=== PATIENT | female | born 1970 | race African-American/Black ===

== ENCOUNTER 2017-01-17 19:27 | Emergency (ER) | payer OTHER ==
[~2017-01-17] VITALS: Ht 165.1 cm; Wt 79.4 kg
--- NOTE | 2017-01-17 20:37 | ED NECK/BACK PAIN COMPLAINT ---
History of Present Illness General Chief Complaint: Lower Extremity Problems Stated Complaint: PT IS HAVING BACK PAIN Source: patient Exam Limitations: no limitations Vital Signs & Intake/Output Vital Signs & Intake/Output Vital Signs Date Time Temp Pulse Resp B/P B/P Pulse O2 O2 Flow FiO2 Mean Ox Delivery Rate 01/17 2149 98.9 84 20 145/69 100 Room Air 01/17 1938 97.8 60 18 176/104 100 Room Air Allergies Coded Allergies: No Known Allergies (01/17/17) Reconcile Medications Loratadine (Claritin) 10 MG TABLET 1 TAB PO DAILY ALLERGIES (Reported) Methocarbamol (Robaxin) 500 MG TABLET 1 TAB PO TID PRN MUSCLE STRAIN Naproxen (Naprosyn) 500 MG TABLET 1 TAB PO BID PRN PAIN Triage Note: PRESENTS TO ED FOR EVALUATION OF LOWER BACK PAIN. REPORTS SHE TOOK A NAP ON HE COUCH YESTERDAY AND UPON WAKING UP SHE EXPERIENCED SOME DISCOMFORT HOWEVER IT HAS BEEN WORSENING SINCE. Triage Nurses Notes Reviewed? yes Onset: Gradual Duration: day(s): (2) Timing: no prior history Quality/Severity: moderate Location: lumbar spine, paraspinous muscles Radiation: none Method of Injury: unknown Loss of Consciousness: no loss of consciousness Modifying Factors: movement HPI: Patient is a 46-year-old female presenting to the emergency department with chief complaint left lower back pain has been going on since yesterday. She reports that she took a nap on the couch and woke up with soreness to her left low back. Pain is achy, worse with movement. No history of back issues in the past. Denies any specific injury or heavy lifting. 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 Denies any nausea vomiting fevers or chills chest pain or shortness of breath. No abdominal pain. She does report urinary frequency but denies dysuria or hematuria. No history kidney stones. She took some Advil with some relief. Denies any urinary incontinence or retention. No lower extremity weakness. Past History Travel History Traveled to [place] past 21 day No Medical History Any Pertinent Medical History? see below for history Surgical History Surgical History: non-contributory Psychosocial History What is your primary language Dive[place] Tobacco Use: Quit >30 days ago Family History Hx Contributory? No Review of Systems Review of Systems Constitutional: Reports: no symptoms. Comments Review of systems: See HPI, All other systems negative. Constitutional, no chills fever or weight loss HEENT: No visual changes no sore throat no congestion Cardiovascular: No chest pain ,palpitation Skin, no jaundice no rashes Respiratory: No dyspnea cough sputum or hemoptysis GI: No nausea no vomiting : No dysuria No hematuria Muscle skeletal: no neck pain, Neurologic: No numbness no confusion Psych: No stress anxiety or depression,. Heme/endocrine: No bruising no bleeding no polyuria or polydipsia Immunology: No splenectomy or history of AIDS Physical Exam Physical Exam General Appearance: well developed/nourished, no apparent distress, alert, awake , comfortable Neck: normal inspection, supple, full range of motion, normal alignment Comments: Well-developed well-nourished person in no acute distress HEENT: Pupils equally round and reactive to light and accommodation. Nose is atraumatic. Neck: Supple, no lymphadenopathy, normal range of motion without pain or tenderness, no C-spine BACK:mild tenderness to palpation over the lumbar paraspinal muscles on the left. Tender to palpation over the left sacroiliac joint. Negative modified straight leg raise bilaterally. Limited range of motion with/secondary to pain. Patient able to bring hands down to mid thigh before pain. Cardiovascular: Regular rate and rhythms no murmurs rubs or gallops, normal JVP Respiratory: Chest nontender. No respiratory distress.breath sounds clear to auscultation bilaterally Abdomen: Soft, nontender nondistended, no appreciable organomegaly. Normal bowel sounds. No ascites Extremity: No edema, full range of motion of upper extremities without difficulty or pain. Muscular strength is 5 out of 5 in all extremities while seated. Neuro: Alert oriented x3, motor sensory normal, patellar reflexes are 2+ bilaterally. Skin: No appreciable rash on exposed skin, skin is warm and dry. Psych: Mood and affect is normal, memory and judgment is normal. Progress Differential Diagnosis: cauda equina syn, herniated disc, myofascial strain, pyelo/UTI, sciatica, T/L spine injury Plan of Care: Orders Procedure Date/time Status Add-on Test (ER Only) 01/17 2146 Active CULTURE,URINE 01/17 2041 Active URINE 01/17 2035 Complete URINALYSIS 01/17 2035 Complete Current Medications Sig/Jesu Start time Last Medication Dose Stop Time Status Admin Ketorolac 30 MG ONE ONE 01/17 2200 UNVr Tromethamine 01/17 2201 (Toradol) Laboratory Tests 01/17/172040: Urinalysis LIGHT H, Urine Color YEL, Urine Clarity CLEAR, Urine pH 6.0, Ur Specific [place] 1.025, Urine Protein TRACE H, Urine Ketones NEG, Urine Nitrite NEG, Urine Bilirubin NEG, Urine Urobilinogen 0.2, Ur Leukocyte Esterase SMALL H , Ur Microscopic SEDIMENT EXAMINED, Urine RBC 1-3, Urine WBC 3-5 H, Ur Epithelial Cells MOD H, Urine Bacteria FEW H, Urine Hemoglobin NEG, Urine Glucose NEG, Urine Test NEGATIVE Microbiology 01/17 2041 URINE ROUT: Urine Culture - RECD Comments: 01/17/2017 9:00:47 PM no bony tenderness on exam. Patient has reproducible pain over the musculature and SI joint of the left low back. She also is reporting frequency. We will assess urinalysis to makes her no signs of UTI. Declining pain medication at this time. 01/17/2017 9:52:51 PM patient informed of the urinalysis results. Not a great sample with moderate epithelial cells. Sent off a culture. Patient will be symptomatically for back strain at this time. We will call if the culture comes back positive and started her on antibiotics at that time. Patient will return for any worsening symptoms or concerns. Departure Departure Time of Disposition: 2149 Disposition: HOME OR SELF CARE Condition: Stable Clinical Impression Primary Impression: Muscle strain Referrals: PATIENT HAS NO PRIMARY CARE DR (PCP/Family) Additional Instructions: Follow-up with your primary care physician CALL TO make appointment. We will call you if you or urine culture grows anything out. Take naproxen and Robaxin as prescribed. Apply warm compresses. Return for worsening symptoms or concerns. Departure Forms: Customer Survey General Discharge Information Prescriptions: Current Visit Scripts Methocarbamol (Robaxin) 1 TAB PO TID PRN MUSCLE STRAIN #15 TAB Naproxen (Naprosyn) 1 TAB PO BID PRN PAIN #20 TAB
[2017-01-17] MEDS ORDERED: CLARITIN10 M1 PO (21:39)
[2017-01-17 21:49] VITALS: BP 145/69
[2017-01-17] MEDS ORDERED: NAPROSYN500 M1 PO (21:51)
[2017-01-17] MEDS ORDERED: ROBAXIN500 M1 PO (21:51)
== END 2017-01-17 21:56 ==
LOC: ERH 19:27
DX: S39.012A Strain of muscle, fascia and tendon of lower back, initial encounter (principal); X58.XXXA Exposure to other specified factors, initial encounter; Y93.89 Activity, other specified; Y92.9 Unspecified place or not applicable
CPT/HCPCS: 81001; 81025; 87086; 96372; J1885